=== PATIENT | female | born 1985 | race Caucasian/White ===

== ENCOUNTER → 2018-05-09 | Outpatient (CLI) | payer OTHER ==
--- NOTE | 2018-05-09 13:10 | RAD ---
EXAM: Lumbar spine, 3 views. HISTORY: Pain. COMPARISON: None. FINDINGS: Frontal, lateral and coned sacral views of the lumbar spine are obtained. There is no listhesis. The vertebral bodies are normal in height. There is slight angulation along the anterior superior endplate of L4, likely degenerative in etiology. There is similar anterior endplate remodeling and spurring at the lower thoracic levels. There is minimal anterior wedging of T11. There is an IUD overlying the pelvis. IMPRESSION: 1. Mild multilevel endplate remodeling. 2. No acute osseous finding. Electronically signed by: Stacia Mtz MD (05/09/2018 1:07 PM) [id number]
== END | disposition home or self-care (01) ==
LOC: PMG 12:32
PROVIDERS: ATTEND Family Medicine
DX: M43.8X6 Other specified deforming dorsopathies, lumbar region (principal); M46.04 Spinal enthesopathy, thoracic region
CPT/HCPCS: 72100